=== PATIENT | male | born 1975 | race Caucasian/White ===

== ENCOUNTER 2024-12-14 15:41 | Emergency (ER) | payer OTHER | END 2024-12-14 17:22 | disposition home or self-care (01) | LOC: JD.ED 15:41 | DX: S46.211A Strain of muscle, fascia and tendon of other parts of biceps, right arm, initial encounter (principal); I10 Essential (primary) hypertension; Z79.899 Other long term (current) drug therapy; X50.1XXA Overexertion from prolonged static or awkward postures, initial encounter | CPT/HCPCS: 99283 ==

== ENCOUNTER 2025-01-04 09:37 | Day surgery (SDC) | payer OTHER ==
[~2025-01-04 09:37] MED LIST: Ondansetron 4 MG/2 ML SDV IVPUSH PRN; Sodium Chloride 0.9% 10 ML Syringe FLUSH PRN; Sodium Chloride 0.9% 10 ML Syringe FLUSH SCH; fentaNYL 100 MCG/2 ML SDV IVPUSH PRN
[2025-01-04] MEDS: Lactated Ringers 1,000 ML IV SCH (09:55)
[2025-01-04] MEDS ORDERED: fentaNYL 100 MCG/2 ML SDV ONE ×2 (11:05→12:12)
[2025-01-04] MEDS ORDERED: Midazolam 1 MG/ML 2 ML SDV ONE (11:05)
[2025-01-04] MEDS ORDERED: Ropivacaine 0.5% 5 MG/ML 30 ML SDV ONE (11:05)
[2025-01-04] MEDS ORDERED: dexmedeTOMIDine HCl 200 MCG/2 ML SDV ONE (11:06)
[2025-01-04] MEDS ORDERED: Propofol 200 MG/20 ML SDV ONE (12:12)
[2025-01-04] MEDS ORDERED: Ondansetron 4 MG/2 ML SDV ONE (12:12)
[2025-01-04] MEDS ORDERED: Dexamethasone 4 MG/ML 5 ML MDV ONE (12:12)
[2025-01-04] MEDS ORDERED: Ketorolac 30 MG/ML SDV ONE (12:12)
[2025-01-04] MEDS ORDERED: Lactated Ringers 1,000 ML ONE (12:28)
[2025-01-04] MEDS ORDERED: Acetaminophen/HYDROcodone 325-5 MG Tab PO PRN (14:09)
== END 2025-01-04 15:25 | disposition home or self-care (01) ==
LOC: JD.SDS 09:37
PROVIDERS: ATTEND Orthopaedic Surgery
DX: S46.211A Strain of muscle, fascia and tendon of other parts of biceps, right arm, initial encounter (principal); I10 Essential (primary) hypertension; K21.9 Gastro-esophageal reflux disease without esophagitis; Z79.899 Other long term (current) drug therapy; X58.XXXA Exposure to other specified factors, initial encounter
CPT/HCPCS: 01710; 64450; 76000; 76000-26; C1776; J0665; J0690; J1100; J1885; J2003; J2250; J2405; J2704; J2795; J3010; J7120